=== PATIENT | female | born 1935 | race Caucasian/White ===

== ENCOUNTER 2022-06-20 11:31 | Observation (INO) | payer MEDICARE, SELFPAY ==
[2022-06-20] VITALS (14 sets, daily range): BP systolic 105–149; BP diastolic 54–78; PULSE 84–119; RESP 18–98; TEMP 36.7–37.3; O2SAT 16–100; BMI 13.2
--- NOTE | ~2022-06-20 | XR_ITS ---
EXAMINATION: XR chest 1V DATE: 06/20/2022 13:34 INDICATION: Dizziness. TECHNIQUE: A single frontal view of the chest was obtained. COMPARISON: None. FINDINGS: There is mild scarring at the lung apices. Calcified pulmonary nodules are consistent with old granulomatous disease. No pleural effusion or pneumothorax. The heart size is normal. IMPRESSION: 1. Mild scarring at the lung apices. Reviewed, dictated and finalized at location A.
--- NOTE | ~2022-06-20 | CT_ITS ---
EXAMINATION: CT brain wo con DATE: 06/20/2022 13:31 INDICATION: Dizziness. TECHNIQUE: Computed tomography (CT) of the head was performed without intravenous contrast. The mA wa s adjusted according to patient size. Iterative reconstruction technique was employed. The dose-lengt h product was 605.33 mGy-cm. COMPARISON: None FINDINGS: There are scattered areas of low attenuation in the cerebral white matter. There is no intr acranial hemorrhage, acute infarction, or abnormal intracranial mass lesion. The ventricles are devin l in size. There are likely changes of ocular lens replacement surgeries. There is mild mucosal thick ening in the paranasal sinuses. The mastoid air cells are normal. There is cerumen in the external au ditory canals. IMPRESSION: 1. Extensive nonspecific cerebral white matter disease, which likely represents chronic small vessel ischemic disease. Reviewed, dictated and finalized at location A.
--- NOTE | 2022-06-20 12:20 | ED.GENADULT ---
HPI - General Adult General Chief complaint: Dizziness Stated complaint: unsteady gait, dizzy Time Seen by Provider: 06/20/22 11:59 History of Present Illness HPI narrative: This is an 87-year-old woman presented to ED after a dizziness episode of dizziness overnight. Patient was getting up to use the restroom when she felt dizzy. She had to be helped back to bed by her family. The patient's grandson who is a nurse took her vital signs noted that she had a heart rate of 48 with normal blood pressure at that time. She continued to be dizzy until they called EMS. When EMS arrived her vital signs have returned to normal and her symptoms had resolved. Patient denies any physical complaints at this time. She denies any double vision, difficulty swallowing, difficulty speaking, lack of coordination, numbness tingling or weakness to any extremity. Patient has a history of paroxysmal AFib but has never had episodes of symptomatic bradycardia in the past. The patient is from [place] and is in town visiting family member. 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 Related Data Allergies Allergy/AdvReac Type Severity Reaction Status Date / Time latex Allergy Rash Verified 06/20/22 12:36 Penicillins Allergy Rash Verified 06/20/22 12:36 Review of Systems Review of Systems: CONSTITUTIONAL: Denies night sweats. EYES: No eye pain ENT: Denies rhinorrhea CARDIOVASCULAR: Denies palpitations RESPIRATORY: Denies hemoptysis GASTROINTESTINAL: Denies hematemesis GENITOURINARY: Denies hematuria. SKIN: Denies rash MUSCULOSKELETAL: Denies myalgia. NEUROLOGIC: Denies weakness. PSYCHIATRIC: Denies delusions PMFSH Past Medical History Medical History (Updated 06/20/22 @ 15:39 by Merrill Vergara MD) Atrial fib/flutter, transient Breast cancer Dementia Kidney malignancy Surgical History Surgical History (Updated 06/20/22 @ 12:25 by Merrill Vergara MD) H/O hysterectomy with oophorectomy History of nephrectomy Exam Narrative: APPEARANCE: No apparent distress. And O x2 which is baseline Head atraumatic. EYES: PERRLA/EOMI, NOSE: Normal no drainage NECK: Supple, Trachea midline RESPIRATORY: CTAB, No increased work of breathing. CARDIOVASCULAR: S1S2 appreciated ABDOMINAL: Soft, nontender, nondistended, MUSCULOSKELETAl: No obvious deformities NEURO: Alert. Cranial nerves 2-12 grossly intact. Sensation light touch, motor function cerebellar function intact for 4 extremities. Gait exam was deferred SKIN:: Warm, dry. Normal color PSYCHIATRIC: Normal affect Course Vital Signs Vital signs: Vital Signs Temperature 98.6 F 06/20/22 11:29 Pulse Rate 100 06/20/22 11:29 Respiratory Rate 20 06/20/22 11:29 Blood Pressure 132/78 06/20/22 11:29 Pulse Oximetry 100 06/20/22 11:29 Oxygen Delivery Room Air 06/20/22 11:29 Temperature 98.6 F 06/20/22 11:29 Pulse Rate 119 H 06/20/22 14:45 Respiratory Rate 21 H 06/20/22 14:45 Blood Pressure 110/62 06/20/22 14:33 Pulse Oximetry 100 06/20/22 14:33 Oxygen Delivery Room Air 06/20/22 11:29 Medical Decision Making MDM Narrative Medical decision making narrative: This is an 87-year-old female presenting to ED with a chief complaint of dizziness. Differential is broad including dehydration her posterior circulation stroke, symptomatic bradycardia among others. Based on patient's history and physical my leading differential is symptomatic bradycardia. Lab work including troponin and then ordered. EKG and chest x-ray will be obtained. Patient placed on continuous cardiac monitoring. Rhythm strip is interpreted by myself was sinus tachycardia. Patient's workup was largely unremarkable. Troponin was negative. While the BNP was slightly elevated, the patient has no history of heart failure and does not appear fluid overloaded at this time. I did a point of care cardiac ultrasound to evaluate patient's heart function which is hyperdynamic and she had
--- NOTE | 2022-06-20 12:22 | ECG_ITS ---
Measurements Intervals [place] Rate: 105 P: 87 DE: 191 QRS: 77 QRSD: 78 T: 86 QT: 331 QTc: 438 Interpretive Statements SINUS TACHYCARDIA BASELINE ARTIFACT- I, V1 BORDERLINE ECG NO PREVIOUS ECG AVAILABLE FOR COMPARISON Electronically Signed On 06-20-2022 13:44:09 CDT by Sagar Galdamez D.O.
[2022-06-20] MEDS: SODIUM CHLORIDE 0.9% IV 500 ML 999 ML IV CONT ×2 (12:37→15:43)
[2022-06-20 12:45] LABS: Basophils Percent Auto 0.3 % (0.2-1.2); Hematocrit 38.5 % (37.0-47.0); Hemoglobin 12.3 g/dL (12.0-15.0); Immature Granulocyte Absolute 0.01 K/mm3 (0.00-0.031); Immature Granulocyte Percent A 0.3 % (0-0.5); Lymphocytes Absolute Auto 0.55 K/mm3 (0.9-3.2); Lymphocytes Percent Auto 14.4 % (18.3-44.2); Mean Corpuscular HGB Conc 31.9 g/dl (32-36); Mean Corpuscular Hemoglobin 30.3 pg (26-34); Mean Corpuscular Volume 94.8 fl (80-100); Mean Platelet Volume 9.5 fl (7.4-10.4); Monocytes Absolute Auto 0.2 K/mm3 (0.1-0.6); Platelet Count Result 212 k/mm3 (150-375); Red Blood Count 4.06 M/mm3 (4.2-5.4); Red Cell Distribution Width 12.8 % (11.5-14.5); White Blood Count 3.8 K/mm3 (4.5-10.0)
[2022-06-20 12:53] LABS: Lactic Acid Reflex 0.9 mmol/L (0.7-2.0)
[2022-06-20 12:55] LABS: Alanine Aminotransferase 19 U/L (6-35); Albumin Level 4.7 g/dL (3.5-5.1); Alkaline Phosphatase 78 U/L (38-126); Anion Gap 16 mmol/L (8-16); Aspartate Amino Transferase 41 U/L (14-36); Bilirubin,Total 0.6 mg/dL (0.2-1.3); Blood Urea Nitrogen 20 mg/dL (7-17); Calcium 9.3 mg/dL (8.4-10.2); Carbon Dioxide 24 mmol/L (22-30); Chloride 97 mmol/L (98-107); Estimated CRCL calculation 24 ml/min; Estimated Glomerular Filt Rate > 60; Glucose 73 mg/dL (65-110); Potassium 4.3 mmol/L (3.4-5.0); Sodium 137 mmol/L (137-145)
[2022-06-20 13:06] LABS: NT Pro B Type Natriuretic Pept 869 pg/mL (5-100); Troponin I < 0.012 ng/mL (0.000-0.034)
[2022-06-20 14:17] LABS: Mucus Urine Rare /lpf; Squamous Epithelial Cell Urine Rare /hpf (Few)
[2022-06-20 14:18] LABS: Appearance Urine Clear (Clear); Bilirubin Urine Negative (Negative); Color Urine Yellow (Yellow); Glucose Urine UA Negative (Negative); Ketones Urine 3+ mg/dL (Negative); Leukocyte Esterase Ur Negative LEU/UL (Negative); Nitrate Urine Negative (Negative); Protein Urine Negative (Negative); Urobilinogen Urine 0.2 mg/dL (<2.0); pH Urine 6.5 (5.0-9.0)
[2022-06-20 14:29] LABS: Add Urine Microscopic? YES; Blood Urine Trace-Intact (Negative)
[2022-06-20 15:55] LABS: Glucose Point of Care 49 mg/dl (65-105)
[2022-06-20 15:58] LABS: Troponin I < 0.012 ng/mL (0.000-0.034)
--- NOTE | 2022-06-20 17:28 | PC.NURSE ---
This patient, Shi Frausto, was admitted to IMU Room 202-. Patient/family oriented to hospital policies and general routines including ID bracelet, bed and alarms, visiting hours, pain management, procedures, bathroom and other care routines, personal items, smoking policy, room service/diet, and visiting hours. Information on how to activate the Rapid Response Team has been discussed. Patient/Family are encouraged to report perceived risks to care and to ask questions if they do not understand what they are told or what they should do.
--- NOTE | 2022-06-20 17:30 | PM.IMHP ---
H&P: HPI History of Present Illness Date/Time: 06/20/22 17:30 Chief Complaint: Dizziness. Narrative: This is an 87-year-old female with dementia, hyperlipidemia, and paroxysmal atrial fibrillation on long-term anticoagulation who presented to the emergency department for evaluation of dizziness. A majority of history is obtained from the patient's daughter, Elzbieta, who was at bedside of the patient has pretty significant short-term memory loss. The patient and her daughter drove to the area on from [place] (proximally a [address]) to visit her new great great grandchild. She seemed to handle the car ride quite well and she has been visiting with family members. Early this morning she had to get up to use the restroom to urinate. Her daughter helped her to the bathroom and when they headed back to the bedroom the patient seemed to be very weak and according to the daughter she was very sweaty and complaining of nausea and dizziness. When lying down she did not have dizziness however any time she tried to sit upper stand up she once again felt weak and lightheaded. Her grandson is a nurse and he reportedly took her vital signs this morning and he was concerned that her pulse of 48 (normal blood pressure) may be the cause of her dizziness and weakness and she was brought in for evaluation. Her pulse was 100 beats per minute on arrival to the ER and has been anywhere between the mid 80s to the low 120s. She appears to be mainly in a sinus rhythm but it looks like she has occasional supraventricular beats. She has not been bradycardic. At the time my evaluation she is resting comfortably and has no complaints. Review of Systems Review of Systems: Twelve systems were reviewed. No facial droop, slurred speech, focal weakness. The patient has not complained of paresthesias or visual changes. She denies chest pain, pleuritic pain, palpitations. No cough or shortness of breath. She did have some nausea earlier today as above. No vomiting. No diarrhea or constipation. No dysuria. Except as documented, all other systems were reviewed and are negative. [facility] Past Medical History Medical History (Updated 06/20/22 @ 23:37 by Pratima Marcum PA-C) Breast cancer Chronic anticoagulation Dementia History of kidney cancer Hyperlipidemia Kidney malignancy Paroxysmal atrial fibrillation Surgical History Surgical History (Updated 06/20/22 @ 19:27 by Pratima Marcum PA-C) History of hysterectomy with oophorectomy History of lumpectomy of left breast History of nephrectomy History of tonsillectomy Family History Family History (Updated 06/20/22 @ 23:37 by Pratima Marcum PA-C) Other Hypertension Social History Social History (Updated 06/20/22 @ 23:37 by Pratima Marcum PA-C) Social History: Surrogate medical decision maker: Elzbieta [place], daughter. Code status: Full code. Smoking status: Never smoker Alcohol intake: never Substance use: never Substance use type: does not use Additional living arrangements comments: The patient lives in [place]. Her daughter sharing lives next door and helps with day to day activities. 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 Spiritual care concerns: No Meds Home Medications and Allergies Home Medications Medication Instructions Recorded Confirmed Type apixaban 2.5 mg tablet (Eliquis) 2.5 mg PO Q12H 06/20/22 06/20/22 History megestrol 40 mg tablet 40 mg PO QAM 06/20/22 06/20/22 History metoprolol succinate 25 mg 25 mg PO Q12H 06/20/22 06/20/22 History tablet,extended release 24 hr mirtazapine 15 mg tablet 15 mg PO HS 06/20/22 06/20/22 History pantoprazole 40 mg tablet,delayed 10 mg PO QAM 06/20/22 06/20/22 History release rosuvastatin 5 mg tablet 5 mg PO QAM 06/20/22 06/20/22 History Allergies Allergy/AdvReac Type Severity Reaction Status Date / Time latex Allergy Rash Verified 06/20/22 12:36 Penicillins Gomez
[2022-06-20 19:10] LABS: Glucose Point of Care 146 mg/dl (65-105)
[2022-06-20 19:11] LABS: Glucose Point of Care 130 mg/dl (65-105)
[2022-06-20] MEDS: MIRTAZAPINE 15 MG TABLET PO (23:22)
[2022-06-20] MEDS: APIXABAN 2.5 MG TABLET PO (23:22)
[2022-06-21] VITALS (18 sets, daily range): BP systolic 90–148; BP diastolic 46–85; PULSE 68–141; RESP 14–20; TEMP 36.3–36.8; O2SAT 93–99
--- NOTE | 2022-06-21 03:30 | ECG_ITS ---
Measurements Intervals [place] Rate: 144 P: [place]: 0 QRS: 74 QRSD: 81 T: 81 QT: 273 QTc: 423 Interpretive Statements ATRIAL FIBRILLATION WITH RAPID VENTRICULAR RESPONSE RSR' IN V1 OR V2, PROBABLY NORMAL VARIANT ABNORMAL ECG COMPARED TO ECG 06/20/2022 12:46:15 ATRIAL FIBRILLATION NOW PRESENT Electronically Signed On 06-21-2022 8:03:12 CDT by Sagar Galdamez D.O.
[2022-06-21] MEDS: METOPROLOL TARTRATE INJ 5 MG/5 ML VIAL IV PUSH (04:09)
[2022-06-21 04:46] LABS: Hematocrit 34.2 % (37.0-47.0); Hemoglobin 10.8 g/dL (12.0-15.0); Mean Corpuscular HGB Conc 31.6 g/dl (32-36); Mean Corpuscular Hemoglobin 30.1 pg (26-34); Mean Corpuscular Volume 95.3 fl (80-100); Mean Platelet Volume 9.4 fl (7.4-10.4); Platelet Count Result 194 k/mm3 (150-375); Red Blood Count 3.59 M/mm3 (4.2-5.4); Red Cell Distribution Width 12.9 % (11.5-14.5); White Blood Count 3.5 K/mm3 (4.5-10.0)
[2022-06-21 04:55] LABS: Anion Gap 13 mmol/L (8-16); Blood Urea Nitrogen 15 mg/dL (7-17); Calcium 8.5 mg/dL (8.4-10.2); Carbon Dioxide 21 mmol/L (22-30); Chloride 101 mmol/L (98-107); Estimated CRCL calculation 21 ml/min; Estimated Glomerular Filt Rate 60; Glucose 75 mg/dL (65-110); Potassium 3.7 mmol/L (3.4-5.0); Sodium 135 mmol/L (137-145)
[2022-06-21 06:40] LABS: SARS-CoV-2 RNA PCR Negative
[2022-06-21] MEDS: ROSUVASTATIN 5 MG TABLET PO (08:11)
[2022-06-21] MEDS: APIXABAN 2.5 MG TABLET PO ×2 (08:11→20:22)
[2022-06-21] MEDS: MEGESTROL ACETATE (*CHEMO) 40 MG TABLET PO (08:12)
[2022-06-21] MEDS: METOPROLOL SUCCINATE EXT REL 25 MG TABCR PO (08:12)
--- NOTE | 2022-06-21 10:48 | PM.IMPN ---
Progress Note: A&P Assessment and Plan (1) Dizziness: Code(s): R42 - Dizziness and giddiness Status: Acute Assessment and Plan: The patient began complaining of dizziness and nausea with walking back from the BR. She was also diaphoretic and noted to have HR in the upper 40s. Brain CT did not show any acute findings. She is orthostatic here. Suspect she has poor oral intake and weight loss resulting in low BP and can not compensate given that she is on Toprol. Suspect tachy-evelin syndrome less likely. Start IV fluids. Cardilogy consult. Will cut metoprolol back to see if this improves her BP while maintaining her HR. (2) Paroxysmal atrial fibrillation: Code(s): I48.0 - Paroxysmal atrial fibrillation Status: Acute Assessment and Plan: Tele showing patient is in/out of AFib. Cardiology consult. As above. Continue Eliquis. (3) Chronic anticoagulation: Code(s): Z79.01 - residential (current) use of anticoagulants Status: Acute Assessment and Plan: Continue Eliquis for stroke prophylaxis. (4) Hypoglycemia: Code(s): E16.2 - Hypoglycemia, unspecified Status: Acute Assessment and Plan: Glucose was 73 on admission but dropped to 49 when checked as a FSBS. Probbaly related to poor oral intake. Will start sliding scale with hypoglycemia protocol. (5) Dementia: Code(s): F03.90 - Unspecified dementia without behavioral disturbance Status: Acute Assessment and Plan: Stable. Only on mirtazapine. Subjective Date/time seen: 06/21/22 10:48 Interval history: 87yo female with AFib on anticoagulation here for dizziness and bradycardia. Patient was dizzy prior to admission when walking back from the BR with weakness, diaphoresis and nausea. HR was 48 at that time. Symptoms improved once she laid down. Patient's Toprol held on admissin but she developed AFib/RVR so Toprol resumed overnight. She has baseline confusion but denies n/v. No CP, SOB or recurrent dizziness. Dtr does state the patietn was dizzy when up to the bedside commode. Patient has had weight loss. Exam Narrative: AF 98.3 117/64 105 16 99% ra Lyin/64 Sittin/85 Standin/41 Gen - very thin female in NARD lying semi-recumbent in bed Chest - CTA bilaterally, nml RR CV - RRR S1/S2; Tele showing patient in/out of AFib, Aflutter Abd - Soft, NT/ND, Positive BS Ext - No pedal edema Psych - Nml mood and affect Skin - Warm and dry Objective Data Vital Signs Vital Signs: Vital Signs - 24 hr 06/20/22 11:29 06/20/22 11:53 06/20/22 13:01 Temperature 98.6 F Pulse Rate 100 89 96 Respiratory Rate 20 25 H Blood Pressure 132/78 105/56 L Pulse Oximetry 100 100 Oxygen Delivery Room Air 06/20/22 13:06 06/20/22 13:16 06/20/22 14:33 Temperature Pulse Rate 95 96 110 H Respiratory Rate 21 H 24 H 21 H Blood Pressure 121/65 110/62 Pulse Oximetry 100 100 100 Oxygen Delivery 06/20/22 14:45 06/20/22 17:11 06/20/22 17:28 Temperature 98.2 F Pulse Rate 119 H 114 H 110 H Respiratory Rate 21 H 98 H 18 Blood Pressure 116/56 L 122/59 L Pulse Oximetry 16 L 100 Oxygen Delivery 06/20/22 18:00 06/20/22 19:59 06/20/22 20:00 Temperature 98.1 F Pulse Rate 110 H 90 Respiratory Rate 24 H Blood Pressure 116/54 L 128/64 Pulse Oximetry 100 Oxygen Delivery 06/20/22 20:00 06/20/22 20:00 06/20/22 23:51 Temperature 99.2 F Pulse Rate 87 Respiratory Rate 20 Blood Pressure 134/62 108/60 149/69 H Pulse Oximetry 99 Oxygen Delivery 06/21/22 04:00 06/21/22 04:09 06/21/22 00:00 Temperature 97.3 F L Pulse Rate 141 H 123 H Respiratory Rate 20 Blood Pressure 148/78 H Pulse Oximetry 99 Oxygen Delivery Room Air 06/20/22 20:00 06/20/22 22:00 06/21/22 00:00 Temperature Pulse Rate 84 85 84 Respiratory Rate Blood Pressure Pulse Oximetry Oxygen Delivery 06/21/22 02:00 06/21/22 0
[2022-06-21] MEDS: SODIUM CHLORIDE 0.9% IV 1,000 ML 60 ML IV CONT (13:37)
[2022-06-21] MEDS: PANTOPRAZOLE 40 MG TABLET PO (14:11)
[2022-06-21 17:07] LABS: Glucose Point of Care 99 mg/dl (65-105)
[2022-06-21] MEDS: MIRTAZAPINE 15 MG TABLET PO (20:22)
[2022-06-22] VITALS (13 sets, daily range): BP systolic 117–138; BP diastolic 68–80; PULSE 76–126; RESP 14–16; TEMP 36.6–36.7; O2SAT 97–99
--- NOTE | 2022-06-22 03:05 | PC.NURSE ---
Patient in and out of AFIB. When getting up to the BSC, heart rate went into the 170s. Denies symptoms. Heart rate decreased when getting back to bed and then converted back to NSR. B/P 147/77.
[2022-06-22] MEDS: SODIUM CHLORIDE 0.9% IV 1,000 ML 60 ML IV CONT (06:08)
[2022-06-22 08:23] LABS: Glucose Point of Care 81 mg/dl (65-105)
--- NOTE | 2022-06-22 09:03 | PCPTNOTE ---
Attempted therapy session unable to complete at this time due to OT being with patient.
[2022-06-22] MEDS: ROSUVASTATIN 5 MG TABLET PO (10:07)
[2022-06-22] MEDS: PANTOPRAZOLE 40 MG TABLET PO (10:07)
[2022-06-22] MEDS: METOPROLOL SUCCINATE EXT REL 25 MG TABCR PO (10:07)
[2022-06-22] MEDS: APIXABAN 2.5 MG TABLET PO (10:07)
[2022-06-22] MEDS: MEGESTROL ACETATE (*CHEMO) 40 MG TABLET PO (10:07)
--- NOTE | 2022-06-22 11:00 | PM.DS ---
DS: Admitting Diagnosis Discharge Date 06/22/22 Admitting Diagnosis Dizziness DS: Discharge Diagnosis Discharge Diagnosis (1) Dizziness: Code(s): R42 - Dizziness and giddiness Status: Acute (2) Paroxysmal atrial fibrillation: Code(s): I48.0 - Paroxysmal atrial fibrillation Status: Acute (3) Chronic anticoagulation: Code(s): Z79.01 - adjunct faculty for medical terminology (current) use of anticoagulants Status: Acute (4) Hypoglycemia: Code(s): E16.2 - Hypoglycemia, unspecified Status: Acute (5) Dementia: Code(s): F03.90 - Unspecified dementia without behavioral disturbance Status: Acute DS: Summary Hospital Course Reason for hospitalization: 87yo female with dementia and AFib here for dizziness. Please see H&P for details Hospital Course: The patient began complaining of dizziness and nausea with walking back from the BR. She was also diaphoretic and noted to have HR in the upper 40s. Brain CT did not show any acute findings. She was orthostatic here. She has poor oral intake chronically for which she is on megace. She has had weight loss which has resulted in low BP and she can not compensate given that she is on Toprol. Suspect tachy-evelin syndrome less likely. We started IV fluids and her orthostatic vitals normalized. We cut her metoprolol succinate dose from 25 mg BID to 25mg daily. This did improve her BP but she was having tachycardia with activity. She is in and out of AFib by telemetry. We increased her to 37.5mg daily. She remained of Eliquis. Glucose was 73 on admission but dropped to 49 when checked as a FSBS.?Either lab error or related to poor oral intake. No further hypoglycemic episodes occurred. She overall did well and was able to be discharged home on 06/22/22. She will follow up with her [facility] when back in [place]. Status at Discharge Cognitive/behavioral status at discharge: Stable Time Spent with Patient Time attestation: Total time spent providing and/or coordinating discharge services: 34 minutes Time spent: Greater than 30 minutes Exam Narrative: AF 97.8 135/80 99 16 99% ra Lyin/68 Sittin/75 Standin/80 Gen - very thin female in NARD lying semi-recumbent in bed Chest - CTA bilaterally, nml RR CV - RRR S1/S2; Tele showing patient in/out of AFib Abd - Soft, NT/ND, Positive BS Ext - No pedal edema Psych - Nml mood and affect Skin - Warm and dry DS: Data Data Completed and Pending Labs on day of discharge: Labs from last 24 hours 06/22/22 06/21/22 08:13 17:05 POC Capillary Glucose 81 99 Discharge Plan Discharge Attending physician on discharge: James Gillette Discharging Clinician: James Gillette Anticipated Discharge Date/Time: 06/22/22 11:09 Patient Disposition: Home, Self-Care Activity: no straining and as tolerated Diet: regular Discharge Instructions: Check heart rate and blood pressure 1 to 2 times a day. Record and bring into your doctor for review. Call your doctor if your blood pressure is less than 90/45. Take precautions to avoid falls. Rise slowly from a lying or sitting position. Pause before standing or walking. Contact your doctor or call 911 and come to the Emergency Room if you have near-syncope, persistent increase in heart rate or other worrisome symptoms. Avoid NSAIDs (ibuprofen, naproxen, Aleve). Tylenol is safe to take. Follow-up with your doctor in 1-2 weeks. Please call for appointment. Follow-up with your social services manager in 1 week. Please call for an appointment. Thank you for using [facility] for your health care needs. Patient Instructions: Antibiotic Form, Apixaban (By mouth), What to Do if Your Blood Sugar is Low (DC), Sick Sinus Syndrome (DC) Stand Alone Forms: General Discharge Information Follow-up/Referrals: PHYSICIAN NOT ON STAFF,NONSTAFF [Primary Care Provider] - Call for Appointment Discharge Medications: Continued panto
[2022-06-22] MEDS: METOPROLOL SUCCINATE EXT REL 12.5 MG TABCR PO (11:56)
[2022-06-22 12:31] LABS: Glucose Point of Care 238 mg/dl (65-105)
== END 2022-06-22 12:33 | disposition home or self-care (01) ==
LOC: ANHED 15:39 → ANHIMU 18:04
PROVIDERS: Internal Medicine; Physician Assistant; Admitting Provider Student in an Organized Health Care Education/Training Program; Emergency Provider Emergency Medicine; Visit Provider Internal Medicine
DX: R42 Dizziness and giddiness (principal); I48.0 Paroxysmal atrial fibrillation; Z79.01 Long term (current) use of anticoagulants; E16.2 Hypoglycemia, unspecified; F03.90 Unspecified dementia, unspecified severity, without behavioral disturbance, psychotic disturbance, mood disturbance, and anxiety; R00.0 Tachycardia, unspecified; R90.82 White matter disease, unspecified; R94.31 Abnormal electrocardiogram [ECG] [EKG]; E78.5 Hyperlipidemia, unspecified; Z20.822 Contact with and (suspected) exposure to COVID-19; Z85.528 Personal history of other malignant neoplasm of kidney; Z90.5 Acquired absence of kidney; Z85.3 Personal history of malignant neoplasm of breast; Z79.899 Other long term (current) drug therapy; Z84.1 Family history of disorders of kidney and ureter
CPT/HCPCS: 36415; 70450; 71045; 80048; 80053; 81001; 82948; 83605; 83735; 83880; 84443; 84484; 85025; 85027; 93005; 96361; 96365; 96375; 97161; 97165; 97530; 97535; 99285; A9270; C9803; G0378; J0696; J7030; J7040; U0003; U0005